=== PATIENT | female | born 1980 | race Caucasian/White ===

== ENCOUNTER 2024-07-15 00:56 | Day surgery (SDC) | payer OTHER, SELFPAY ==
[2024-07-08 13:56] VITALS: BMI 25.1
--- NOTE | 2024-07-08 14:05 | PC.NURSE ---
Report to the Outpatient Waiting Room, entrance under the green pavilion located off [facility], at time _0600_ on date _[id number]_. Planned Procedure Time: _0730_.? Time changes happen often and if your time is changed the preop area will call you the afternoon before. - You and your visitor will be asked to self-screen and do not enter if you have any COVID symptoms. Please call surgeon if you need to reschedule. - A mask is optional within the hospital at this time. Patients may have clear liquids (water, carbonated beverages, clear teas, apple juice) until 3 hours prior to surgery with a maximum of 20 ounces. - No food from midnight until time of surgery and no smoking. This includes no chewing gum, candy or mints. Take only the following medications with a SIP of water on the morning of surgery: ____Venlafaxine DO NOT STOP ANY OF YOUR OTHER PRESCRIPTION MEDICATIONS PRIOR TO SURGERY EXCEPT THE FOLLOWING Medications to discontinue per physician ____Tobias hanson Date to take last ykwg___[id number]____ Please no make-up, nail azeri, hairspray, perfume, deodorant, or body powder the day of surgery.? No jewelry (including any body piercings) or valuables the day of surgery, leave them at home.? Please take a shower or bath the night before, or the morning of, surgery with an antibacterial soap.? Wear comfortable, loose fitting clothing.? . - Jewelry must be removed prior to entering the operating room.? Rings and piercings that are not removed may be cut off. - The hospital will not accept responsibility for valuables.? - Please leave all valuables, including medications, at home the day of surgery. If you are going home after surgery, a licensed local company truck driver must drive you home.? - NO public transportation without another adult if you receive anesthesia. - We recommend that an adult stay with you for 24 hours following discharge. - We also recommend that you do not drive, make important decision, drink alcoholic beverages, or take any drugs that were not prescribed by your health care provider for at least 24 hours after your discharge time. Follow any additional instructions given to you from your surgeon. Telephone instructions given to __Amanda__and asked if any additional questions and then verbalized understanding. Patient advised to call surgeon office or pre surgery nurse liaison [phone] if any additional questions.
[2024-07-15] VITALS (10 sets, daily range): BP systolic 107–136; BP diastolic 71–85; PULSE 69–88; RESP 12–17; TEMP 36.3–36.7; O2SAT 96–100
[2024-07-15] MEDS: SCOPOLAMINE 1 MG PATCH 1 PATCH TRANSDERM (06:17)
[2024-07-15] MEDS: LACTATED RINGERS 1,000 ML 30 ML IV CONT ×2 (06:20→09:08)
[2024-07-15 06:38] LABS: BEDSIDEPREGUCG Negative (Negative)
--- NOTE | 2024-07-15 06:52 | WPDANESEPPF ---
Anes - Initial Pre Proc Eval Procedure: Operation Date: 07/15/24 07:30 Proposed Procedures p Bilateral Breast Implant Exchange - Arjun Kay MD Date/Time: 07/15/24 06:52 Surgeon: Arjun Kay MD Pre Op Diagnosis: hx of breast augmentation Patient Data Age: 43 Gender: F Height: 1.73 m Weight: 72.1 kg Last Vital Signs Temp 36.7 C 07/15/24 06:04 Pulse 84 07/15/24 06:04 Resp 16 07/15/24 06:04 BP 107/71 07/15/24 06:04 Pulse Ox 100 07/15/24 06:04 O2 Del Method Room Air 07/15/24 06:04 Allergies Allergy/AdvReac Type Severity Reaction Status Date / Time No Known Allergies Allergy Verified 07/15/24 06:15 Home Medications ?Medication ?Instructions ?Recorded ?Confirmed ?Type venlafaxine 75 mg capsule,extended 75 mg PO DAILY 07/08/24 07/15/24 History release 24 hr vit C 30 mg-s.olivera 250 mg-celery 1 cap PO DAILY 07/08/24 07/15/24 History seed 75 mg-grape seed extrt capsule (Tart Olivera) Laboratory Tests 07/15/24 06:04 POC Urine HCG, Qual Negative (Negative) Patient hx anesthesia problems: post op nausea/vomiting Family hx anesthesia problems: none Results Review: All pre-operative results and documents have been reviewed as part of the pre-operative evaluation. [facility] Past Medical History Medical History (Updated 07/14/24 @ 14:30 by Reid Dejesus DO) PONV (postoperative nausea and vomiting) Surgical History Surgical History (Updated 07/14/24 @ 14:30 by Reid Dejesus DO) History of breast augmentation Social History Social History Smoking status: Never smoker Alcohol intake: current Living arrangements: with family Spiritual care concerns: No Anes - Eval Final PreProcedure Day of Procedure 07/15/24 06:52 Patient weight: normal Heart: regular rate and rhythm Lungs: clear to auscultation Airway: Mallampati scale class II Neurological: alert and oriented Last oral intake: >/= 8 hours ASA classification: II Emergent: no Anesthetic plan: proceed Anesthesia type and monitoring: general LMA and standard monitoring Results Review: All pre-operative results and documents have been reviewed as part of the pre-operative evaluation. Informed Consent: The patient's anesthetic plan and its attendant risks and benefits were discussed with the patient/family/POA. Questions were solicited and answers provided to the satisfaction of the patient/family/POA.
--- NOTE | 2024-07-15 07:13 | P.OP_ITS ---
Procedure Note - Detailed Date of Procedure 07/15/24 Pre-op Diagnosis hx of breast augmentation Post-op Diagnosis Same Procedure Performed Bilateral breast implant exchange Surgeon Arjun Kay MD Anesthesia General Indications History of breast augmentation. Per our ultrasound and she states per her MRI s he has a left breast implant rupture. She states prior to capsular contracture she had a fairly good match with her differential implants and would like to proceed with similar size understanding she will never match. Findings Previous implants: Right - smooth 265cc Intact - thin capsule Left - smooth 234cc intact thick / calcified capsule Replacement implants: Natrelle Inspira Soft Touch Right - REF# [id number] SN [id number] Left - REF# [id number] SN [id number] Description of Procedure Preoperatively the risks, benefits, alternatives were discussed in extensive detail. I wanted to be very realistic about the risks involved as well as expectations. I was clear about how we could actually make her worse. We discussed the changes that occur with implant exchange after capsular contracture and risks of recurrence of capsular contracture. Answered all questions to satisfaction. Voiced a clear understanding. Consent obtained. She was taken the operating room placed supine on the operating room table. Anesthesia provided by anesthesiology and prepped and draped in a standard sterile fashion. Surgical time-out was taken. 1% lidocaine and 0.25% Marcaine with epinephrine was used to provide a field block. Tegaderm nipple alvarenga were placed. Fifteen blade used to excise the previous IMF scars. Dissection was continued down until the capsules were identified and excised the entire capsule bilateral which was sent to pathology. I soaked the pockets with PhaseOne. I then copiously irrigated with 3 L of saline solution on TUR tubing. Verified strict hemostasis. Again soaked with PhaseOne After verifying hemostasis again I irrigated with Betadine containing solution. Using a no-touch technique and a Mendoza funnel the implant was introduced into the pocket. This was closed with 2-0 PDS followed by 3-0 Monocryl and a running subcuticular 4-0 Monocryl followed by tissue glue. Dressings were placed. She was woken taken to the PACU without difficulty. All instrument sponge counts were correct at the end of the case. Estimated Blood Loss 40 Drains No Packing No Pathology Yes (Bilateral capsules) Complications No immediate complications Condition Stable Disposition PACU
--- NOTE | 2024-07-15 07:13 | WPDHPUPDATE1 ---
History and Physical Update Update Date/Time: 07/15/24 07:13 History and Physical has been reviewed, including an updated exam of the patient. There are NO changes in the patient's condition. Risks, benefits, and alternatives have been discussed and questions answered. Patient agrees to proceed with procedure.
[2024-07-15] MEDS: ceFAZolin 2 GM/D5W 50 ML 2 GM/50 ML BAG IVPB (07:27)
[2024-07-15] MEDS: NACL 0.9% IRRIG POUR BOTTLE 900 ML, GENTAMICIN SULFATE INJ 160 MG, ceFAZolin 2 GM, POVI... IRRIGATION (07:27)
[2024-07-15] MEDS: LIDO 1%/EPINEPHRINE 1:100,000 50 ML VIAL 60 ML INFILTRATE (07:27)
[2024-07-15] MEDS: BUPivacaine HCL 0.25% PF 30 ML VIAL INFILTRATE (07:27)
[2024-07-15] MEDS: TRANEXAMIC ACID 1,000MG/ISO100 1,000 MG/100 ML BAG 200 MG IVPB (07:47)
--- NOTE | 2024-07-15 07:52 | SUR.OPER ---
1mg of Dilaudid given to Jennifer Francisco CULLEN
[2024-07-15] MEDS: oxyCODONE HCL (*CRX) 5 MG TAB IR PO (10:41)
== END 2024-07-15 11:30 | disposition home or self-care (01) ==
PROVIDERS: Visit Provider Surgery Plastic and Reconstructive Surgery
PROC: (CPT 19371; principal; 2024-07-15 07:30)
DX: T85.44XA Capsular contracture of breast implant, initial encounter (principal); Y83.8 Other surgical procedures as the cause of abnormal reaction of the patient, or of later complication, without mention of misadventure at the time of the procedure
CPT/HCPCS: 19371; 19325; 88304; A9270; J0690; J1100; J1171; J1580; J2004; J2250; J2405; J2704; J3010; J7120